=== PATIENT | female | born 1995 | race Native Hawaiian/Other Pacific Islander ===

== ENCOUNTER 2017-04-16 21:25 | Emergency (ER) | payer MEDICAID, OTHER ==
[~2017-04-16] VITALS: Ht 167.6 cm; Wt 70.8 kg
[2017-04-16 21:30] VITALS: BP 118/75
[2017-04-16 23:09] LABS: APPEARANCE,URINE SL CLOUDY (CLEAR); BILIRUBIN,URINE NEGATIVE (NEGATIVE); BLOOD, URINE TRACE-I (NEGATIVE); COLOR,URINE YELLOW (YELLOW); LEUKOCYTE ESTERASE ,URINE NEGATIVE (NEGATIVE); NITRITE, URINE NEGATIVE (NEGATIVE); UGLUCOSE NEGATIVE (NEGATIVE)
[2017-04-16 23:35] LABS: RBC,URINE 0-5 (RARE) /HPF (0-5); WBC,URINE 0-5 (RARE) /HPF (0-5)
[2017-04-17] MEDS ORDERED: ACETAMINOPHEN EXTRA STRENGTH 500 MG TAB PO ONE (02:35)
[2017-04-17] MEDS ORDERED: cefTRIAXone 250 MG in LIDOCAINE 1% ***ER ONLY *** 0.9 ML IM ONE (02:50)
[2017-04-17] MEDS ORDERED: KETOROLAC 30 MG/ML VIAL IM ONE (02:50)
[2017-04-17] MEDS ORDERED: metroNIDAZOLE 250 MG TAB PO ONE (02:50)
[2017-04-17] MEDS ORDERED: cefTRIAXone 250 MG VIAL ONE (03:10)
[2017-04-17] MEDS ORDERED: LIDOCAINE/EPI 2% 1:100000 20 ML VIAL INJ ONE ×2 (03:12→03:14)
[2017-04-17] MEDS ORDERED: LIDOCAINE MPF 1% 50 MG/5 ML VIAL ONE (03:14)
[2017-04-17 03:45] VITALS: BP 114/65
[2017-04-17] MEDS ORDERED: DOXYCYCLINE 100 MG CAP PO SCH (09:00)
[2017-04-19 06:17] LABS: CHLAMYDIA TRACHOMATIS AMP DNA Negative (Negative)
== END 2017-04-17 03:48 | disposition home or self-care (01) ==
LOC: MED 21:25
DX: N73.9 Female pelvic inflammatory disease, unspecified (principal)
CPT/HCPCS: 36415; 81001; 81025; 87070; 87086; 87210; 87491; 96372; 99284; J0696; J1885; J2001

== ENCOUNTER 2018-09-13 23:42 | Inpatient (IN) | payer MEDICAID, OTHER ==
[~2018-09-13] VITALS: Ht 165.1 cm; Wt 72.6 kg
--- NOTE | 2018-09-13 23:51 | NUR ---
PT TAKEN TO L&D
[2018-09-14] MEDS: LACTATED RINGERS 1,000 ML IV SCH ×2 (00:48→06:11)
[2018-09-14] MEDS ORDERED: NALBUPHINE 10 MG/ML AMP ONE (00:57)
[2018-09-14] MEDS ORDERED: NALBUPHINE 10 MG/ML AMP IVP SCH (01:00)
[2018-09-14 01:07] LABS: APPEARANCE,URINE CLEAR (CLEAR); BILIRUBIN,URINE NEGATIVE (NEGATIVE); BLOOD, URINE NEGATIVE (NEGATIVE); COLOR,URINE YELLOW (YELLOW); LEUKOCYTE ESTERASE ,URINE TRACE (NEGATIVE); NITRITE, URINE NEGATIVE (NEGATIVE); UGLUCOSE NEGATIVE (NEGATIVE)
[2018-09-14] MEDS ORDERED: PREN-380 PO (01:17)
[2018-09-14 01:18] VITALS: BP 118/75
[2018-09-14 01:37] LABS: RBC,URINE NONE SEEN /HPF (0-5); WBC,URINE 0-5 /HPF (0-5)
[2018-09-14] MEDS: AMPICILLIN 2,000 MG in NACL 0.9% 100 ML IV SCH ×3 (02:11→09:58)
[2018-09-14] MEDS ORDERED: AMPICILLIN 2,000 MG VIAL ONE ×3 (02:12→10:06)
[2018-09-14] MEDS ORDERED: TERBUTALINE 1 MG/ML VIAL SUBQ ONE ×2 (05:10→05:21)
--- NOTE | 2018-09-14 06:24 | NUR ---
PATIENT HAS BEEN SCREENED AND CATEGORIZED LOW NUTRITION RISK. PATIENT WILL BE SEEN WITHIN 7 DAYS OF ADMISSION. 09/20/18 TRES JUSTIN MS, RDN
--- NOTE | 2018-09-16 12:27 | NUR ---
Late entry. During arrival to the triage area the nurse determined that this patient needed to be brought straight back to L&D for OB related complaints.
== END 2018-09-14 13:00 | disposition home or self-care (01) | DRG 566 ==
LOC: MED 23:42 → MLD 23:53 → OBSVTOIN 09-14 02:00
PROVIDERS: ADMIT Obstetrics & Gynecology; ATTEND Obstetrics & Gynecology
DX: O26.892 Other specified pregnancy related conditions, second trimester (principal); Z3A.26 26 weeks gestation of pregnancy
CPT/HCPCS: G0378 ×2; 59025; 81001; 99285; J0290; J2300; J3105; J7120

== ENCOUNTER 2018-10-24 23:25 | Observation (INO) | payer MEDICAID ==
[~2018-10-24] VITALS: Ht 162.6 cm; Wt 77.6 kg
[~2018-10-24 23:25] MED LIST: PREN-380 PO
[2018-10-25] MEDS ORDERED: hydrOXYzine 50 MG/ML VIAL IM ONE (00:40)
[2018-10-25 00:55] LABS: APPEARANCE,URINE CLEAR (CLEAR); BILIRUBIN,URINE NEGATIVE (NEGATIVE); BLOOD, URINE NEGATIVE (NEGATIVE); COLOR,URINE YELLOW (YELLOW); LEUKOCYTE ESTERASE ,URINE TRACE (NEGATIVE); NITRITE, URINE NEGATIVE (NEGATIVE); UGLUCOSE NEGATIVE (NEGATIVE)
[2018-10-25 01:10] LABS: RBC,URINE 0-5 /HPF (0-5); WBC,URINE 0-5 /HPF (0-5)
[2018-10-25] MEDS ORDERED: hydrOXYzine PAMOATE 25 MG CAP PO ONE (01:20)
[2018-10-25] MEDS ORDERED: ACETAMINOPHEN 325 MG TAB PO ONE (01:35)
[2018-10-25] MEDS ORDERED: ACETAMINOPHEN 325 MG TAB ONE (01:45)
[2018-10-25 02:12] VITALS: BP 107/68
== END 2018-10-25 01:45 | disposition home or self-care (01) ==
LOC: MLD 23:25
PROVIDERS: ADMIT Obstetrics & Gynecology; ATTEND Obstetrics & Gynecology
DX: O26.893 Other specified pregnancy related conditions, third trimester (principal); R10.32 Left lower quadrant pain; N89.8 Other specified noninflammatory disorders of vagina; Z3A.33 33 weeks gestation of pregnancy
CPT/HCPCS: 36415; 81001; 82731; 87086; G0378; J3410; Q0177

== ENCOUNTER 2018-11-28 17:40 | Observation (INO) | payer MEDICAID ==
[~2018-11-28] VITALS: Ht 162.6 cm; Wt 83.5 kg
[2018-11-28 19:20] LABS: BASOPHILS # (AUTO) 0.1 K/uL (0.00-0.22); BASOPHILS % (AUTO) 0.5 % (0.0-2.0); EOSINOPHILS # (AUTO) 0.3 K/uL (0-0.4); EOSINOPHILS % (AUTO) 2.8 % (0.0-4.0); HEMATOCRIT 27.5 % (36-48); HEMOGLOBIN 9.1 g/dL (12.0-16.0); LYMPHOCYTES # (AUTO) 1.8 K/uL (2.5-16.5); LYMPHOCYTES % (AUTO) 18.8 % (20.5-51.1); MEAN CORPUSCULAR HEMOGLOBIN 25 pg (27-31); MEAN CORPUSCULAR HGB CONC 33 g/dL (33-37); MEAN CORPUSCULAR VOLUME 75.8 fL (80-94); MONOCYTES # (AUTO) 0.8 K/uL (0.8-1.0); MONOCYTES % (AUTO) 8.6 % (1.7-9.3); NEUTROPHILS # (AUTO) 6.8 K/uL (1.8-7.7); NEUTROPHILS % (AUTO) 69.3 % (42.2-75.2); PLATELET COUNT (AUTO) 283 K/uL (140-450); RED BLOOD CELL COUNT(AUTO) 3.63 MIL/uL (4.20-5.40); RED CELL DISTRIBUTION WIDTH 17.5 % (11.6-13.7); WHITE BLOOD COUNT (AUTO) 9.7 K/uL (4.8-10.8)
[2018-11-28 19:29] LABS: APPEARANCE,URINE CLEAR (CLEAR); BILIRUBIN,URINE NEGATIVE (NEGATIVE); BLOOD, URINE NEGATIVE (NEGATIVE); COLOR,URINE YELLOW (YELLOW); LEUKOCYTE ESTERASE ,URINE NEGATIVE (NEGATIVE); NITRITE, URINE NEGATIVE (NEGATIVE); UGLUCOSE NEGATIVE (NEGATIVE)
[2018-11-28 19:30] LABS: ANION GAP 12.6 (8-16); CREATININE 0.7 mg/dL (0.6-1.3); POTASSIUM 3.6 mmol/L (3.5-5.1)
[2018-11-28 19:40] VITALS: BP 110/61
[2018-11-28 19:42] LABS: ALBUMIN 2.3 g/dL (3.4-5.0); TOTAL BILIRUBIN 0.2 mg/dL (0.0-1.0)
[2018-11-28] MEDS ORDERED: HYDROCORTISONE 2.5% OINT 30 GM TUBE TP PRN (20:40)
[2018-11-28] MEDS ORDERED: diphenhydrAMINE 50 MG CAP PO ONE (21:10)
== END 2018-11-29 13:05 | disposition home or self-care (01) ==
LOC: MLD 17:40
PROVIDERS: ADMIT Obstetrics & Gynecology; ATTEND Obstetrics & Gynecology
DX: O26.893 Other specified pregnancy related conditions, third trimester (principal); L29.9 Pruritus, unspecified; R10.2 Pelvic and perineal pain; O99.89 Other specified diseases and conditions complicating pregnancy, childbirth and the puerperium; M54.5 Low back pain; O76 Abnormality in fetal heart rate and rhythm complicating labor and delivery; Z3A.37 37 weeks gestation of pregnancy
CPT/HCPCS: 36415; 76819; 80053; 81003; 85025; 87653; G0378; Q0092; Q0163

== ENCOUNTER 2018-12-07 22:10 | Inpatient (IN) | payer MEDICAID ==
[~2018-12-07] VITALS: Ht 162.6 cm; Wt 86.6 kg
[2018-12-08] MEDS ORDERED: AMPICILLIN 2,000 MG VIAL ONE (00:09)
[2018-12-08] MEDS ORDERED: CARBOPROST 250 MCG/ML AMP IM PRN (00:15)
[2018-12-08] MEDS ORDERED: METHYLERGONOVINE 0.2 MG/ML AMP IM PRN (00:15)
[2018-12-08] MEDS ORDERED: PROMETHAZINE 25 MG/ML VIAL IVP PRN (00:15)
[2018-12-08] MEDS ORDERED: NALBUPHINE 10 MG/ML AMP IVP PRN (00:15)
[2018-12-08] MEDS ORDERED: LACTATED RINGERS 500 ML IV ONE (00:15)
[2018-12-08] MEDS: AMPICILLIN 2,000 MG in NACL 0.9% MINI-BAG PLUS 100 ML IV SCH ×2 (00:28→01:31)
[2018-12-08 00:58] LABS: BASOPHILS % (AUTO) 0.4 % (0.0-2.0); EOSINOPHILS # (AUTO) 0.2 K/uL (0-0.4); EOSINOPHILS % (AUTO) 1.9 % (0.0-4.0); HEMATOCRIT 29.2 % (36-48); HEMOGLOBIN 9.6 g/dL (12.0-16.0); LYMPHOCYTES # (AUTO) 1.8 K/uL (2.5-16.5); LYMPHOCYTES % (AUTO) 14.8 % (20.5-51.1); MEAN CORPUSCULAR HEMOGLOBIN 25 pg (27-31); MEAN CORPUSCULAR HGB CONC 33 g/dL (33-37); MEAN CORPUSCULAR VOLUME 75.8 fL (80-94); MONOCYTES # (AUTO) 0.8 K/uL (0.8-1.0); MONOCYTES % (AUTO) 6.6 % (1.7-9.3); NEUTROPHILS # (AUTO) 9.1 K/uL (1.8-7.7); NEUTROPHILS % (AUTO) 76.3 % (42.2-75.2); PLATELET COUNT (AUTO) 301 K/uL (140-450); RED BLOOD CELL COUNT(AUTO) 3.85 MIL/uL (4.20-5.40); WHITE BLOOD COUNT (AUTO) 11.9 K/uL (4.8-10.8)
[2018-12-08 01:01] LABS: APPEARANCE,URINE CLEAR (CLEAR); BILIRUBIN,URINE NEGATIVE (NEGATIVE); BLOOD, URINE NEGATIVE (NEGATIVE); COLOR,URINE YELLOW (YELLOW); LEUKOCYTE ESTERASE ,URINE NEGATIVE (NEGATIVE); NITRITE, URINE NEGATIVE (NEGATIVE); UGLUCOSE NEGATIVE (NEGATIVE)
[2018-12-08 01:15] LABS: ANION GAP 15.2 (8-16); CREATININE 1.1 mg/dL (0.6-1.3); POTASSIUM 4.2 mmol/L (3.5-5.1)
[2018-12-08 01:22] LABS: ALBUMIN 2.4 g/dL (3.4-5.0); TOTAL BILIRUBIN 0.3 mg/dL (0.0-1.0)
[2018-12-08] MEDS ORDERED: AMPICILLIN 1,000 MG VIAL ONE ×5 (03:14→19:56)
[2018-12-08] MEDS: AMPICILLIN 1,000 MG in NACL 0.9% MINI-BAG PLUS 50 ML IV SCH ×5 (03:54→19:50)
[2018-12-08] MEDS ORDERED: OXYTOCIN 20 UNITS/LR PREMIX 1,000 ML IV ONE (05:59)
[2018-12-08] MEDS: LACTATED RINGERS 1,000 ML IV SCH ×2 (07:18→16:08)
--- NOTE | 2018-12-08 08:27 | NUR ---
PATIENT HAS BEEN SCREENED AND CATEGORIZED LOW NUTRITION RISK. PATIENT WILL BE SEEN WITHIN 7 DAYS OF ADMISSION. 12/14/[address]
[2018-12-08] MEDS ORDERED: MISOPROSTOL 200 MCG TAB VG SCH (18:00)
[2018-12-09] MEDS ORDERED: fentaNYL 0.05 MG/ML VIAL IVP ONE (00:05)
[2018-12-09] MEDS ORDERED: fentaNYL 0.05 MG/ML VIAL ONE (00:13)
[2018-12-09] MEDS: AMPICILLIN 1,000 MG in NACL 0.9% MINI-BAG PLUS 50 ML IV SCH (00:22)
[2018-12-09] MEDS ORDERED: AMPICILLIN 1,000 MG VIAL ONE (00:29)
[2018-12-09] MEDS ORDERED: BUPIVACAINE 0.125%/NS PREMIX 250 ML ONE (00:46)
[2018-12-09] MEDS ORDERED: BUPIVACAINE 0.125%/NS PREMIX 250 ML EPI ONE (00:55)
[2018-12-09] MEDS ORDERED: LIDOCAINE 1% 500 MG/50 ML VIAL ONE (04:12)
[2018-12-09] MEDS ORDERED: MORPHINE SULFATE 10 MG/ML VIAL ONE (04:35)
[2018-12-09] MEDS ORDERED: METHYLERGONOVINE 0.2 MG TAB PO PRN (05:00)
[2018-12-09] MEDS ORDERED: MEASLES, MUMPS, AND RUBELLA 1 VIAL SQVAC PRN (05:00)
[2018-12-09] MEDS ORDERED: oxyCODONE/APAP 5/325 MG 1 TAB TAB PO PRN (05:00)
[2018-12-09] MEDS ORDERED: GENTAMICIN PER PHARMACY MC PRN ×2 (05:00→09:05)
[2018-12-09] MEDS ORDERED: METHYLERGONOVINE 0.2 MG/ML AMP IM PRN (05:00)
[2018-12-09] MEDS ORDERED: BENZOCAINE/MENTHOL 20%-0.5% 60 GM CAN TP PRN (05:00)
[2018-12-09] MEDS ORDERED: OXYTOCIN 10 UNITS/ML VIAL IM PRN (05:00)
[2018-12-09] MEDS ORDERED: CLINDAMYCIN 900 MG/6 ML VIAL IV ONE (05:15)
[2018-12-09] MEDS ORDERED: GENTAMICIN 80 MG/2 ML VIAL ONE (05:38)
[2018-12-09] MEDS ORDERED: OXYTOCIN 20 UNITS/LR PREMIX 1,000 ML IV ONE (05:46)
[2018-12-09] MEDS: CLINDAMYCIN 900 MG in DEXTROSE 5% 100 ML IV SCH ×3 (05:55→21:05)
[2018-12-09] MEDS ORDERED: GENTAMICIN 130 MG in DEXTROSE 5% 100 ML IV SCH (06:00)
[2018-12-09] MEDS: IBUPROFEN 600 MG TAB PO PRN (08:14)
[2018-12-09] MEDS ORDERED: GENTAMICIN 120 MG in DEXTROSE 5% 100 ML IV SCH ×2 (19:00→20:00)
[2018-12-09] MEDS ORDERED: DOCUSATE SOD/SENNA 50/8.6 MG 1 TAB PO SCH (21:00)
[2018-12-10] MEDS: CLINDAMYCIN 900 MG in DEXTROSE 5% 100 ML IV SCH (04:56)
[2018-12-10] MEDS: IBUPROFEN 600 MG TAB PO PRN ×2 (08:20→20:59)
[2018-12-10 13:58] LABS: HEMATOCRIT 29.7 % (36-48); HEMOGLOBIN 9.5 g/dL (12.0-16.0)
[2018-12-11] MEDS ORDERED: DOCU-299 PO (08:51)
[2018-12-11] MEDS ORDERED: FERR325E14 PO (08:51)
== END 2018-12-11 10:20 | disposition home or self-care (01) | DRG 560 ==
LOC: MLD 22:10 → MFCC 12-09 09:00
PROVIDERS: ADMIT Obstetrics & Gynecology; ATTEND Obstetrics & Gynecology
PROC: 10E0XZZ Delivery of Products of Conception, External Approach (ICD-10-PCS; principal; 2018-12-08)
PROC: 10907ZC Drainage of Amniotic Fluid, Therapeutic from Products of Conception, Via Natural or Artificial Opening (ICD-10-PCS; 2018-12-08)
PROC: 0KQM0ZZ Repair Perineum Muscle, Open Approach (ICD-10-PCS; 2018-12-08)
PROC: 3E0R3BZ Introduction of Anesthetic Agent into Spinal Canal, Percutaneous Approach (ICD-10-PCS; 2018-12-08)
PROC: 00HU33Z Insertion of Infusion Device into Spinal Canal, Percutaneous Approach (ICD-10-PCS; 2018-12-08)
DX: O99.824 Streptococcus B carrier state complicating childbirth (principal); Z37.0 Single live birth; O70.1 Second degree perineal laceration during delivery; Z3A.39 39 weeks gestation of pregnancy
CPT/HCPCS: 36415; 51702; 59409; 80053; 81003; 85018; 85025; 86592; 86886; 86900; 86901; J0290; J1580; J2001; J2270; J2590; J3010; J3490; J7060; J7120

== ENCOUNTER 2023-06-28 00:08 | Emergency (ER) | payer OTHER ==
[~2023-06-28] VITALS: Ht 167.6 cm; Wt 78.7 kg
[~2023-06-28 00:08] MED LIST changes: +IBUP-2213 PO; +PNV91TAB8 PO; -PREN-380 PO
[2023-06-28 00:15] VITALS: BP 148/66; PULSE 99; RESP 16; TEMP 98.7; O2SAT 99
[2023-06-28] MEDS: SILVER SULFADIAZINE 1% 50 GM JAR TP ONE (00:39)
[2023-06-28] MEDS: ACETAMINOPHEN EXTRA STRENGTH 500 MG TAB PO ONE (01:27)
[2023-06-28 01:42] VITALS: BP 126/66; PULSE 98; RESP 16; TEMP 98.7; O2SAT 99
== END 2023-06-28 01:42 | disposition home or self-care (01) ==
LOC: MED 00:08
DX: O9A.212 Injury, poisoning and certain other consequences of external causes complicating pregnancy, second trimester (principal); T21.12XA Burn of first degree of abdominal wall, initial encounter; R03.0 Elevated blood-pressure reading, without diagnosis of hypertension; Z3A.19 19 weeks gestation of pregnancy; T79.9XXA Unspecified early complication of trauma, initial encounter; X12.XXXA Contact with other hot fluids, initial encounter; Y93.89 Activity, other specified; Y92.89 Other specified places as the place of occurrence of the external cause; Y99.8 Other external cause status
CPT/HCPCS: 16000; 99282